=== PATIENT | male | born 1985 | race American Indian/Alaskan Native ===

== ENCOUNTER 2016-12-26 22:55 | Inpatient (IN) | payer MEDICAID ==
--- NOTE | 2016-12-26 23:14 | C.PDOC ---
History Of Present Illness 31 year old male was transferred from [facility] to [facility] [place] ED for psychiatric admission - schizophrenia and depression. Patient denies suicidal ideations, homicidal ideations, or physical complaints. Time Seen by Provider: 12/26/16 22:57 Chief Complaint (Nursing): Psychiatric Evaluation History Per: Patient History/Exam Limitations: no limitations Suicide/Self Injury Attempted (Context): None Severity: None Pain Scale Rating Of: 0 Associated Symptoms: denies: Suicidal Thoughts, Suicidal Plan Involuntary Hold By: None Recent travel outside of the [place]: No Additional History Per: Prior Records Past Medical History Reviewed: Historical Data, Nursing Documentation, Vital Signs Vital Signs: Last Vital Signs Temp 98 F 12/30/16 07:29 Pulse 64 12/30/16 07:29 Resp 19 12/30/16 07:29 BP 111/67 12/30/16 07:29 Pulse Ox 99 12/26/16 23:32 - Medical History PMH: Depression, Schizophrenia Family History: States: No Known Family Hx - Social History Hx Alcohol Use: Yes Hx Substance Use: No - Immunization History Hx Tetanus Toxoid Vaccination: No Hx Influenza Vaccination: No Hx Pneumococcal Vaccination: No Review Of Systems Except As Marked, All Systems Reviewed And Found Negative. Constitutional: Negative for: Fever, Chills Cardiovascular: Negative for: Chest Pain, Palpitations Respiratory: Negative for: Cough, Shortness of Breath Gastrointestinal: Negative for: Nausea, Vomiting, Abdominal Pain, Diarrhea Neurological: Positive for: Other (History of Schizophrenia ) Psych: Negative for: Suicidal ideation Physical Exam - Physical Exam Appears: Well, Non-toxic, No Acute Distress Skin: Warm, Dry Head: Normacephalic Eye(s): bilateral: Normal Inspection Oral Mucosa: Moist Neck: Supple Cardiovascular: Rhythm Regular Respiratory: Normal Breath Sounds, No Rales, No Rhonchi, No Wheezing Gastrointestinal/Abdominal: Normal Exam, Bowel Sounds, Soft, No Tenderness Extremity: Normal ROM, No Tenderness Neurological/Psych: Oriented x3 Gait: Steady ED Course And Treatment O2 Sat by Pulse Oximetry: 98 (room air ) Pulse Ox Interpretation: Normal Progress Note: Patient admitted to psychiatric floor under Dr. Jefferson for depression, schizophrenia. Disposition - Disposition Disposition: HOSPITALIZED Disposition Time: 23:08 Condition: STABLE - Clinical Impression Clinical Impression: Depression, Schizophrenia - Scribe Statement The provider has reviewed the documentation as recorded by the Scribhanna Jara All medical record entries made by the Tania were at my direction and personally dictated by me. I have reviewed the chart and agree that the record accurately reflects my personal performance of the history, physical exam, medical decision making, and the department course for this patient. I have also personally directed, reviewed, and agree with the discharge instructions and disposition. Decision To Admit - Pt Status Changed To: Hospital Disposition Of: Inpatient - Admit Certification Admit to Inpatient:: After my assessment, the patient will require hospitalization for at least two midnights. This is because of the severity of symptoms shown, intensity of services needed, and/or the medical risk in this patient being treated as an outpatient. - InPatient: Physician Admission Certification: I certify that this patient requires 2 or more midnights of care for the following reason:: see notes - . Bed Request Type: Psychiatry Admitting Physician: Charlotte Jefferson Patient Diagnosis: Schizophrenia, Depression
--- NOTE | 2016-12-27 12:35 | PCM.PSYCH ---
Initial Psychiatric Evaluation - Initial Psychiatric Evaluation Type of Admission: Voluntary Legal Status: Capacity Chief Complaint (in patient's own words): I was hearing voices. History of Present Illness and Precipitating Events: Patient is a 31 year old single AAM, who lives with the mother came to the ED bc of suicidal ideation and homicidal ideation. Pt remained disorganized and internally preoccupied throughout the evaluation. He was superficially cooperative but remained guarded about the details. He reports h/o multiple inpt psych admissions and reports that he is following up with [facility], in [place]. Pt reports that he is drinking increasing amounts of alcohol. Yesterday he consumed around 2-3 pints of vodka and started hearing voices telling him to kill himself so he came to the hospital to get help. He reports auditory hallucinations command type, telling him to kill himself and reports seeing shadows. He reports depressed mood and feelings of hopelessness and helplessness and poor sleep. He remained anxious and uncomfortable. However he remained guarded about suicidal and homicidal plans. PMH None reported Current Medications: Active Medications Generic Name Dose Route Start Last Admin Trade Name Freq PRN Reason Stop Dose Admin Quetiapine Fumarate 150 mg 12/27/16 00:14 12/27/16 00:18 Seroquel PO 150 mg HS LACI Administration Past Psychiatric History - Past Psychiatric History Previous Treatment History: Inpatient Pertinent Medical Hx (Current Medical&Sleep Prob, Allergies): Allergies Allergy/AdvReac Type Severity Reaction Status Date / Time No Known Allergies Allergy Verified 12/26/16 23:01 Divalproex [Depakote ER] 500 mg PO DAILY 12/26/16 Folic Acid 1 mg PO DAILY 12/26/16 QUEtiapine [SEROquel XR] 150 mg PO HS 12/26/16 Sertraline [Zoloft] 50 mg PO HS 12/26/16 Review of Systems - Review of Systems All systems: reviewed and no additional remarkable complaints except - Psychiatric Psychiatric: Anxiety, Irritability, Suicidal Ideation Mental Status Examination - Personal Presentation Personal Presentation: Looks stated age - Affect Affect: Constricted - Motor Activity Motor Activity: Calm - Reliability in Providing Information Reliability in Providing Information: Good - Speech Speech: Organized - Mood Mood: Depressed, Anxious - Formal Thought Process Formal Thought Process: Hallucinations - Obsessions/Compulsions Obsessions: No Compulsions: No - Cognitive Functions Orientation: Person, Place, Situation, Time Sensorium: Alert Attention/Concentration: Attentive Abstract Thinking: [place] Estimate of Intelligence: Below average Judgement: Imparied, as evidence by: Poor judgement, Imparied, as evidence by: Lack of insight into illness - Risk Risk: Diminished functioning - Strength & Assets Inventory Strength & Assets Inventory: Cooperative DSM 5 DX - DSM 5 DSM 5 Diagnosis: Bipolar disorder mixed severe with psychotic features Rule out schizoaffective disorder bipolar type Alcohol use disorder severe - Recommended/Plan of Treatment Treatment Recommendations and Plan of Treatment: Bipolar disorder mixed severe with psychotic features Rule out schizoaffective disorder bipolar type CBT Psychoeducation Supportive therapy, group therapy, individual therapy Depakote 250 mg PO BID Trazodone 50 mg by mouth daily at bedtime Seroquel 100 mg PO QHS Alcohol use disorder severe CBT Psychoeducation Ativan 1 mg PO Q 6 hr prn Folic acid/MVI/Thiamine - Smoking Cessation Smoking Cessation Initiated: No
[2016-12-27] MEDS: Divalproex 500 mg DR Tab PO SCH (19:03)
[2016-12-28] MEDS: Divalproex 500 mg DR Tab PO SCH ×2 (10:01→17:35)
--- NOTE | 2016-12-28 13:54 | PCM.PYCHPN ---
Psychiatric Progress Note - Psychiatric Progress Note Patient seen today, length of contact: 17 min Patient Chief Complaint: "I feel depressed and agitated" Problems Identified/Issues Discussed: Pt seen, evaluated, chart reviewed, and case reviewed with staff. As per the staff, the pt remained agitated overnight and had a verbal altercation with another patient. Pt is disheveled, disorganized, and unkempt. Pt is delusional and paranoid, and believes his mother is stealing his money. He describes his mood as depressed, and agitated. Pt states he has suicidal ideation and wants to jump in front of a train. The pt is compliant with his medications and reports no side effects. After case discussed, support and psychoeducation given. Medication Change: Yes Medical Record Reviewed: Yes Mental Status Examination - Cognitive Function Orientation: Person, Place, Situation, Time Memory: Intact Attention: Poor Concentration: Poor Association: Loose Fund of Knowledge: Poor - Mood Mood: Depressed, Anxious - Affect Affect: Constricted, Depressed - Speech Speech: Soft - Formal Thought Process Formal Thought Process: Hallucinations, Delusions, Paranoia - Suicidal Ideation Suicidal Ideation: Yes - Homicidal Ideation Homicidal Ideation: No Goal/Treatment Plan - Goal/Treatment Plan Need for Continued Stay: Discharge may exacerbated symptoms Progress Toward Problem(s) and Goals/Treatment Plan: Bipolar disorder mixed severe with psychotic features Rule out schizoaffective disorder bipolar type Alcohol use disorder severe CBT Psychoeducation Supportive therapy, individual therapy Cogentin 1 mg PO Q6H PRN Depakote 500 mg PO BID Haldol 5 mg PO Q6H PRN Ativan 1 mg PO Q6H PRN Trazodone 100 mg PO HS
[2016-12-29] MEDS: Divalproex 500 mg DR Tab PO SCH ×2 (11:21→17:32)
--- NOTE | 2016-12-29 14:56 | PCM.PYCHPN ---
Psychiatric Progress Note - Psychiatric Progress Note Patient seen today, length of contact: 17 min Patient Chief Complaint: "I feel depressed and agitated" Problems Identified/Issues Discussed: Pt seen, evaluated, chart reviewed, and case reviewed with staff. Today pt reports improvement in his mood and psychosis. He reports improvement in his agitation and irritability. He denies any suicidal ideation. He is compliant with his medications and reports no side effects. He needs more time for stabilization. After case discussed, support and psychoeducation given. Medication Change: No Medical Record Reviewed: Yes Mental Status Examination - Cognitive Function Orientation: Person, Place, Situation, Time Memory: Intact Concentration: WNL Association: [facility] Fund of Knowledge: WN - Mood Mood: Depressed, Anxious - Affect Affect: Constricted, Depressed - Speech Speech: Soft - Formal Thought Process Formal Thought Process: Paranoia - Suicidal Ideation Suicidal Ideation: No - Homicidal Ideation Homicidal Ideation: No Goal/Treatment Plan - Goal/Treatment Plan Need for Continued Stay: Discharge may exacerbated symptoms Progress Toward Problem(s) and Goals/Treatment Plan: Bipolar disorder mixed severe with psychotic features Rule out schizoaffective disorder bipolar type Alcohol use disorder severe CBT Psychoeducation Supportive therapy, individual therapy Cogentin 1 mg PO Q6H PRN Depakote 500 mg PO BID Haldol 5 mg PO Q6H PRN Ativan 1 mg PO Q6H PRN Trazodone 100 mg PO HS - Smoking Cessation Smoking Cessation Initiated: No
[2016-12-30 07:29] VITALS: BP 111/67; PULSE 64; RESP 19; TEMP 98
[2016-12-30] MEDS: Divalproex 500 mg DR Tab PO SCH (09:36)
--- NOTE | 2016-12-30 11:11 | PCM.PYCHDC ---
Mental Status Examination - Mental Status Examination Orientation: Person, Place, Situation, Time Memory: Intact Mood: Neutral Affect: Constricted Speech: Soft Attention: WNL Concentration: WNL Association: WNL Fund of Knowledge: WNL Formal Thought Process: No Impairment Description of patient's judgement and insight: good, fair Psychotic Thoughts and Behaviors: denies any AVH Suicidal Ideation: No Current Homicidal Ideation?: No Discharge Summary - Discharge Note Reason for Hospitalization: Patient is a 31 year old single AAM, who lives with the mother came to the ED bc of suicidal ideation and homicidal ideation. Pt remained disorganized and internally preoccupied throughout the evaluation. He was superficially cooperative but remained guarded about the details. He reports h/o multiple inpt psych admissions and reports that he is following up with [facility], in [place]. Pt reports that he is drinking increasing amounts of alcohol. Yesterday he consumed around 2-3 pints of vodka and started hearing voices telling him to kill himself so he came to the hospital to get help. He reports auditory hallucinations command type, telling him to kill himself and reports seeing shadows. He reports depressed mood and feelings of hopelessness and helplessness and poor sleep. He remained anxious and uncomfortable. However he remained guarded about suicidal and homicidal plans. Consultations:: List each consultation separately and include: 1. Reason for request. 2. Findings. 3. Follow-up Summary of Hospital Course include:: 1. Description of specific treatment plan utilized for patients during their course of treatmen. 2. Summarize the time- course for resolution of acute symptoms and/or regressed behaviors. 3. Describe issues identified and worked on during hospitalization. 4. Describe medication utilized. 5. Describe medical problems identified and treated. 6. Reassessment of suicide risk Summary of Hospital Course: During the course of his stay, patient (pt) started progressively improving and he no longer remained anxious, depressed, paranoid and irritable. He started attending groups and meetings and denied any feelings of hopelessness, helplessness, and worthlessness. He denied any problem with the sleep or appetite, denied suicidal ideation or homicidal ideation. Pt denied any auditory or visual hallucinations. Patient remained calm and cooperative and remained compliant with the medications and denied any side effects. - Final Diagnosis (DSM 5) Condition upon Discharge: GOOD DSM 5: Bipolar disorder mixed severe with psychotic features Rule out schizoaffective disorder bipolar type Alcohol use disorder severe Disposition: HOME/ ROUTINE Follow-up Treatment Plan: Education: Pt was educated and counseled about the risks and benefits of taking and not taking medications. Pt was educated and counseled about the risks of drinking and abusing drugs. Pt was educated and counseled to go to the ER or call 911 if pt develop suicidal ideation or homicidal ideation, worsening of symptoms or severe side effects of the meds. Prescriptions/Medication Reconciliation: Divalproex [Depakote DR] 500 mg PO BID #60 tcp QUEtiapine [SEROquel] 150 mg PO HS #30 tab traZODone [Desyrel] 100 mg PO HS #30 tab - Smoking Cessation Smoking Cessation Medication prescribed: No - Antipsychotic Medications Pt discharged on 2 or more routine antipsychotic medications: No
[2017-01-01 12:35] VITALS: O2SAT 98
== END 2016-12-30 12:15 | disposition home or self-care (01) | DRG 430 ==
LOC: C.ER 22:55 → C.5E 23:06
PROVIDERS: ADMIT Psychiatry & Neurology Psychiatry; ATTEND Psychiatry & Neurology Psychiatry
PROC: GZHZZZZ Group Psychotherapy (ICD-10-PCS; principal; 2016-12-26)
PROC: GZ58ZZZ Individual Psychotherapy, Cognitive-Behavioral (ICD-10-PCS; 2016-12-26)
PROC: GZ56ZZZ Individual Psychotherapy, Supportive (ICD-10-PCS; 2016-12-26)
DX: F31.64 Bipolar disorder, current episode mixed, severe, with psychotic features (principal); R45.851 Suicidal ideations; Z79.899 Other long term (current) drug therapy; F10.10 Alcohol abuse, uncomplicated